=== PATIENT | male | born 1950 | race Caucasian/White ===

== ENCOUNTER 2016-08-23 11:12 | Emergency (ER) | payer OTHER ==
[~2016-08-23] VITALS: Ht 182.9 cm; Wt 91.0 kg
[~2016-08-23 11:12] MED LIST: AMBIEN5 MG PO; CARDIZEM CD,CA180 MG PO; CARDIZEM60 MG PO; ECOTRIN325 MG PO; GLUCOSAMINE1000 MG PO; HYZAAR 50-121 TABLET PO; TERAZOSIN HCL2 MG PO
[2016-08-23 12:50] LABS: EOSINOPHIL (%) 1.2 % (0-5); EOSINOPHIL COUNT 0.1 K/uL (0-0.3); HEMATOCRIT 42.2 % (38.0-50.0); IMMATURE GRANULOCYTE (%) 0.3 % (0.0-0.7); INSTRUMENT ABS NEUTROPHIL CT 3.8 K/uL; LYMPHOCYTE COUNT 1.8 K/uL (1.0-2.8); MCH 29.8 PG (29.0-34.0); MCHC 33.9 G/DL (30.0-36.0); MCV 87.9 FL (86-99); MEAN PLAT.VOLUME 10.6 uM^3 (9.0-12.4); MONOCYTE (%) 6.4 % (3-12); MONOCYTE COUNT 0.4 K/uL (0-0.8); NEUTROPHIL (%) 62.4 % (45-76); NEUTROPHIL COUNT 3.8 K/uL (1.8-6.4); PLATELET COUNT 175 K/uL (156-360); RBC DIS.WIDTH-CV 13.1 % (11.8-14.6); RBC DIS.WIDTH-SD 42.3 % (39-53); WHITE BLOOD COUNT 6.1 K/uL (4.1-10.2)
[2016-08-23 12:55] LABS: PROTHROMBIN TIME 10.5 (9.2-11.2); PTT 27.4 (25-32)
[2016-08-23 13:20] LABS: TROP-I INTERPRETATION NEGATIVE; TROPONIN-I < 0.01 ng/mL (0.0-0.30)
[2016-08-23 13:21] LABS: ANION GAP 12 MEQ/L (2-14); CHLORIDE 101 MEQ/L (99-109); GFR ESTIMATE (CALCULATED) > 59 mL/min/; GLUCOSE 88 mg/dL (70-99); POTASSIUM 4.1 MEQ/L (3.7-5.4); SAMPLE HEMOLYSIS CHECK 1; SAMPLE ICTERIC CHECK 0; SAMPLE LIPEMIA CHECK 0; SODIUM 138 MEQ/L (136-147); UREA NITROGEN (BUN) 15 mg/dL (9-23)
[2016-08-23 15:12] LABS: TROP-I INTERPRETATION NEGATIVE; TROPONIN-I < 0.01 ng/mL (0.0-0.30)
[2016-08-23 15:44] VITALS: BP 147/92
== END 2016-08-23 15:46 | disposition home or self-care (01) ==
LOC: EME 11:12
PROVIDERS: Emergency Medicine
DX: R07.89 Other chest pain (principal); I10 Essential (primary) hypertension; E78.5 Hyperlipidemia, unspecified
CPT/HCPCS: 71010; 80048; 84484; 85025; 85610; 85730; 93005; 99281; 99285

== ENCOUNTER 2016-09-15 07:38 | Day surgery (SDC) | payer OTHER ==
[~2016-09-15] VITALS: Ht 182.9 cm; Wt 88.0 kg
[~2016-09-15 07:38] MED LIST changes: +AMLOD-VALSA-HC1 EAC4 PO; +CHLORTHALIDONE25 MG PO; +LO-DOSE ASPIRIN81 M2 PO
[2016-09-15 13:30] VITALS: BP 128/73
[2016-09-15 14:23] VITALS: BP 133/71
[2016-09-15 19:37] VITALS: BP 143/89
[2016-09-15 23:13] VITALS: BP 129/69
[2016-09-16 04:50] VITALS: BP 116/69
[2016-09-16 06:25] LABS: EOSINOPHIL (%) 1.5 % (0-5); EOSINOPHIL COUNT 0.1 K/uL (0-0.3); HEMATOCRIT 39.3 % (38.0-50.0); IMMATURE GRANULOCYTE (%) 0.2 % (0.0-0.7); INSTRUMENT ABS NEUTROPHIL CT 3.8 K/uL; LYMPHOCYTE COUNT 1.8 K/uL (1.0-2.8); MCH 30.3 PG (29.0-34.0); MCHC 34.4 G/DL (30.0-36.0); MCV 88.3 FL (86-99); MEAN PLAT.VOLUME 10.5 uM^3 (9.0-12.4); MONOCYTE (%) 6.6 % (3-12); MONOCYTE COUNT 0.4 K/uL (0-0.8); NEUTROPHIL (%) 62.2 % (45-76); NEUTROPHIL COUNT 3.8 K/uL (1.8-6.4); PLATELET COUNT 153 K/uL (156-360); RBC DIS.WIDTH-CV 13.2 % (11.8-14.6); RBC DIS.WIDTH-SD 42.5 % (39-53); RED BLOOD COUNT 4.45 M/uL (4.00-5.50); WHITE BLOOD COUNT 6.1 K/uL (4.1-10.2)
[2016-09-16 06:45] LABS: ANION GAP 6 MEQ/L (2-14); CHLORIDE 102 MEQ/L (99-109); GFR ESTIMATE (CALCULATED) > 59 mL/min/; GLUCOSE 89 mg/dL (70-99); POTASSIUM 3.6 MEQ/L (3.7-5.4); SAMPLE HEMOLYSIS CHECK 0; SAMPLE ICTERIC CHECK 0; SAMPLE LIPEMIA CHECK 0; SODIUM 139 MEQ/L (136-147); UREA NITROGEN (BUN) 15 mg/dL (9-23)
[2016-09-16 07:35] VITALS: BP 127/76
[2016-09-16] MEDS ORDERED: ATORVASTATIN CA40 MG PO (10:19)
[2016-09-16] MEDS ORDERED: NITROSTAT0.4 MG SL (10:19)
[2016-09-16] MEDS ORDERED: EFFIENT10 MG PO (10:19)
== END 2016-09-16 12:07 | disposition home or self-care (01) ==
LOC: CATH 07:38 → 2SOUTH 10:30 → 4EAST 10:30 → 2SOUTH 10:30 → 4EAST 13:19
PROVIDERS: Internal Medicine Cardiovascular Disease
DX: I25.110 Atherosclerotic heart disease of native coronary artery with unstable angina pectoris (principal); R00.1 Bradycardia, unspecified; I11.9 Hypertensive heart disease without heart failure; I48.3 Typical atrial flutter; R00.2 Palpitations; Z98.890 Other specified postprocedural states; Z82.49 Family history of ischemic heart disease and other diseases of the circulatory system; Z88.5 Allergy status to narcotic agent; Z82.3 Family history of stroke
CPT/HCPCS: 80048; 85025; 85347; 93005; C1725; C1769; C1874; C1887; G0378; J0583; J1644; J2250; J3010; J7030; J7050